=== PATIENT | female | born 1975 | race Caucasian/White ===

== ENCOUNTER 2019-10-04 13:42 | Inpatient (IN) | payer OTHER, SELFPAY ==
--- NOTE | 2019-10-04 | ECHO_ITS ---
Patient Info Name: Isa Oliveros Age: 44 years : 1975 Gender: Female Ht: 62 in Wt: 246 lbs BSA: 2.28 m2 HR: 86 bpm Heart Rhythm: Sinus Rhythm Technical Quality: Fair Exam Date: 10/04/2019 2:42 PM Exam Location: [facility] Patient Status: Inpatient Admit Date: 10/04/2019 Staff Ordering Physician: Zac Nevarez MD Engagement Liaison: Cedric Alejo RDCS Attending Provider: Santos Mckeon MD Referring Physician: Roque ARNOLD; Exam Type: CA echo doppler color flow Study Info Indications I20.0 - Unstable angina Complete two-dimensional, color flow and Doppler transthoracic echocardiogram is performed. History/Risk Factors Chest pain; CAD w/ 2 stents, DM2. Summary 1. Left atrial chamber dimension is mildly enlarged. 2. Left ventricular chamber dimension is normal. 3. Technically difficult study with limited views. 4. Left ventricular systolic function is normal with an estimated ejection fraction of 5560.0 %. 5. Normal diastolic function for age. Left Ventricle Left ventricular chamber dimension is normal. Left ventricular systolic function is normal with an estimated ejection fraction of 5560.0 %. Normal diastolic function for age. Right Ventricle Right ventricle chamber size are normal. Left Atria Left atrial chamber dimension is mildly enlarged. Right Atria Right atrial chamber dimension is normal. Aortic Valve Aortic valve is not well visualized. Pulmonic Valve Pulmonary valve is not well visualized. Mitral Valve Mitral valve is structurally and functionally normal to two-dimensional, color flow Doppler and Doppler interrogation. Tricuspid Valve The tricuspid valve is not well visualized. Left Ventricular Outflow Tract Name Value Normal LVOT 2D LVOT Diameter 1.8 cm LVOT Doppler LVOT Peak Gradient 3 mmHg LVOT Mean Gradient 2 mmHg LVOT VTI 16 cm LVOT VTI/AV VTI Ratio 0.7 LVOT Stroke Volume 41 ml LVOT CO 3.1 l/min LVOT CI 1.3 l/min/m2 Mitral Valve Name Value Normal MV Doppler MV Decel Zavala 338 cm/s2 MV PHT 57 ms MV Area (PHT) 3.8 cm2 4.0-5.0 MV Diastolic Function MV E Peak Velocity 67 cm/s MV A Peak Velocity 61 cm/s MV E/A 1.1 MV Decel Time 197 ms MV Annular TDI MV E/e' (Septal) 8.0 <=8.
--- NOTE | ~2019-10-04 | XR_ITS ---
EXAMINATION: XR chest 2V EXAM DATE: 10/04/2019 16:08 INDICATION: Mid chest pain. Unstable angina. TECHNIQUE: Frontal and lateral projections of the chest obtained and reviewed. There is no prior ranjan dy for comparison. FINDINGS: There are cholecystectomy clips. The lungs are clear. There are no pleural effusions. Th e cardiomediastinal silhouette is within normal limits. There is no pneumothorax suspected. The bon es and soft tissues are unremarkable. IMPRESSION: No acute cardiopulmonary findings. Reviewed, dictated and finalized at location A.
[2019-10-04 12:30] VITALS: PULSE 92
[2019-10-04 12:37] VITALS: BMI 44.9
--- NOTE | 2019-10-04 12:43 | ADMGEN ---
This patient, Isa Oliveros, was admitted to IMU Room 205-02. Patient/family oriented to hospital policies and general routines including ID bracelet, bed and alarms, visiting hours, pain management, procedures, bathroom and other care routines, personal items, smoking policy, room service/diet, and visiting hours. Valuables list has been completed. Information on how to activate the Rapid Response Team has been discussed. Patient/Family are encouraged to report perceived risks to care and to ask questions if they do not understand what they are told or what they should do.
--- NOTE | 2019-10-04 13:44 | ECG_ITS ---
Measurements Intervals [place] Rate: 73 P: 3 VA: 138 QRS: 25 QRSD: 95 T: 46 QT: 408 QTc: 451 Interpretive Statements SINUS RHYTHM DELAYED PRECORDIAL R/S TRANSITION BORDERLINE ECG Electronically Signed On 10-04-2019 14:19:05 CDT by Wallace Ahumada D.O.
[2019-10-04 13:58] LABS: Basophils Absolute Auto 0.1 K/mm3 (0.0-0.1); Eosinophils Absolute Auto 0.3 K/mm3 (0-0.3); Eosinophils Percent Auto 2.8 % (0-4.4); Hematocrit 51.5 % (37.0-47.0); Hemoglobin 15.9 g/dL (12.0-15.0); Immature Granulocyte Absolute 0.02 K/mm3 (0.00-0.031); Immature Granulocyte Percent A 0.2 % (0-0.5); Lymphocytes Absolute Auto 2.95 K/mm3 (0.9-3.2); Lymphocytes Percent Auto 33.2 % (18.3-44.2); Mean Corpuscular HGB Conc 30.9 g/dl (32-36); Mean Corpuscular Hemoglobin 29.5 pg (26-34); Mean Corpuscular Volume 95.5 fl (80-100); Monocytes Absolute Auto 0.6 K/mm3 (0.1-0.6); Monocytes Percent Auto 7.1 % (2.6-8.5); Neutrophils Absolute Auto 4.9 K/mm3 (1.3-6.7); Neutrophils Percent Auto 55.7 % (45.5-73.1); Platelet Count Result 332 k/mm3 (150-375); Red Blood Count 5.39 M/mm3 (4.2-5.4); Red Cell Distribution Width 13.2 % (11.5-14.5); White Blood Count 8.9 K/mm3 (4.5-10.0)
--- NOTE | 2019-10-04 14:07 | PM.IMHP ---
H&P: HPI History of Present Illness Chief complaint: unstable angina Narrative: Isa Oliveros is a 44 year old female who has a history of coronary artery disease with 2 coronary stents. She stated that 2017 she had 2 stents placed at [facility] by Dr. Raphael. She also tells me that she had a stent placed in the left leg not too long ago and she believes it was at [facility]. The patient stated that she had met with her son yesterday and has been having chest pain constantly since then. The patient stated that she took 2 baby aspirin and some nitro last night and her patent still did not go way. She continued to have pain today and called the ambulance. She does have a history of having depression anxiety and bipolar disorder. The patient is still complaining of having some discomfort at 5/10 on the pain scale. She had no nausea vomiting. No fever no chills no cough. She stated she had some numbness and tingling to left arm. The patient was given morphine in the emergency room at the outside hospital she was also given Nitrostat and lorazepam. She was also given Zofran for nausea. I do not see her chest x-ray or her CT scan results from [facility] [place] troponins and thyroid levels have been ordered there but I do not have those results. I am asking for those results from that hospital. Cardiology has been consulted. Also I do not see a 12 lead EKG on her chart so I ordered another 1. As well as another chest x-ray. It looks like her blood pressure there was 140/75 and 128/70 respirations 20-24 and pulse rate in the 70s. Pulse ox in the 90s On room air. Date of service 10/04/2019 Review of Systems Review of Systems: All systems reviewed & are unremarkable except as noted in HPI and below Constitutional: Constitutional: Reports as per HPI and Reports no additional constitutional complaints Eyes: Eyes: Reports as per HPI and Reports no additional eye complaints ENT: Reports system reviewed and no additional complaints, except as documented and Reports Normal hearing present Cardiovascular: Cardiovascular: Reports no additional cardiovascular complaints Respiratory: Respiratory: Reports no additional respiratory complaints and Reports no additional respiratory complaints Gastrointestinal: Gastrointestinal: Reports as per HPI and Reports no additional gastrointestinal complaints Musculoskeletal: Musculoskeletal: Reports no additional musculoskeletal complaints Integumentary/Breasts: Skin/Breast: Reports system reviewed and no additional complaints, except as docu and Reports as per HPI Neurologic: Reports system reviewed and no additional complaints, except as documented, Reports as per HPI and Reports Normal hearing present Psychiatric: Psychiatric: Reports no additional psychiatric complaints and Reports as per HPI Endocrine: Endocrine: Reports no additional endocrine complaints Hematologic/Lymphatic: Hematologic/Lymphatic: Reports no additional hematologic/lymphatic complaints Allergic/Immunologic: Allergic/Immunologic: Reports no additional allergic/immunologic complaints [facility] Past Medical History Medical History (Updated 10/04/19 @ 14:50 by Swathi Cornejo NP) Anxiety Asthma Bipolar disorder CAD (coronary artery disease) History of 2 cardiac stents performed at [facility] in 2017. [address] Dr[address] Raphael CAD (coronary artery disease) Chronic back pain The patient stated that she is supposed to have surgery tomorrow but isn't going to make it. Depression DM2 (diabetes mellitus, type 2) She cause a pre diabetes. GERD with apnea Patient awaiting her CPAP machine History of MRSA infection Left arm Hyperlipidemia PAD (peripheral artery disease) Surgical History Surgical History (Updated 10/04/19 @ 14:21 by Swathi Cornejo NP) H/O cardiac catheterization H/O heart artery stent X2 2017 H/O tubal ligation Hx of cholecystectomy S/P partial hysterectomy Family History Family Hist
[2019-10-04 14:08] LABS: INR 0.9; Prothrombin Time 11.5 Seconds (11.1-14.7)
[2019-10-04 14:09] LABS: Partial Thromboplastin Time 23.1 SECONDS (22.3-36.8)
--- NOTE | 2019-10-04 14:09 | PM.CNCAR ---
Assessment and Plan Assessment and plan (1) Chronic back pain: Code(s): M54.9 - Dorsalgia, unspecified; G89.29 - Other chronic pain Status: Chronic (2) GERD with apnea: Code(s): K21.9 - Gastro-esophageal reflux disease without esophagitis; R06.81 - Apnea, not elsewhere classified Status: Chronic Assessment and Plan: management per PC (3) Anxiety: Code(s): F41.9 - Anxiety disorder, unspecified Status: Chronic Assessment and Plan: Management per PC (4) Depression: Code(s): F32.9 - Major depressive disorder, single episode, unspecified Status: Chronic (5) Bipolar disorder: Code(s): F31.9 - Bipolar disorder, unspecified Status: Chronic (6) Hyperlipidemia: Code(s): E78.5 - Hyperlipidemia, unspecified Status: Chronic Assessment and Plan: will check lipids cont statins (7) Chest pain: Code(s): R07.9 - Chest pain, unspecified Status: Acute Assessment and Plan: pt had symptoms last night and at that time her BP was significantly elevated No acute EKG changes on serial EKGs will arrange for ECHO to evaluate LV function and r/o structural heart disease serial troponins ordered pt was started on Heparin drip cont ASA, Plavix and statin If CE negative pt may benefit from stress test will try to obtain old medical records (8) HTN (hypertension): Code(s): I10 - Essential (primary) hypertension Status: Acute Assessment and Plan: Initially elevated now better controlled will adjust meds Further recommendations will depend on results of diagnostic tests and pt's clinical status. Thank you for consult. Ger shabazz. History of Present Illness History of Present Illness Consult date/time: 10/04/19 14:09 Mrs Oliveros is a pleasant 44 y/o WF with PMH of HTN, CAD s/p PCI, HLD, GERD, anxiety, bipolar disorder who presented to OSH due to chest discomfort last night. Pt states that she had argument with her son at 7 PM yesterday. Subsequently had episode of sharp chest discomfort. She took NTG and ASA and they have not helped with symptoms. She had evaluation at OSH. Since she had another similar episode she was given NTG and ASA which have not helped much. She got morphine with some relief. States that her BP was found to be elevated (163//93) which usually runs low. pt states that in 2017 she was admitted to [facility] and had two stents placed at that time. Her last cath was about 6 months ago at [facility] in [place] and was negative per pt. She does follow with asl interpreter (Dr. Cárdenas) at [facility]. pt states that before current presentation she did not have any symptoms related to physical activity. She states that sometimes has some LLE pain. Had US recently which was negative per pt. She states that she used to smoke but quit in 07/10. Now feels fine, denies CP, SOB or palpitations. No LE edema. Pt was seen and examined, chart was reviewed, case was d/w pt's nurse and hospitalist's team. Reason For Visit: unstable angina Review of Systems Review of Systems: All systems reviewed & are unremarkable except as noted in HPI and below Constitutional: Constitutional: Reports as per HPI Eyes: Eyes: Reports as per HPI ENT: Reports system reviewed and no additional complaints, except as documented and Reports as per HPI Cardiovascular: Cardiovascular: Reports as per HPI Respiratory: Respiratory: Reports as per HPI Gastrointestinal: Gastrointestinal: Reports as per HPI Genitourinary: Genitourinary: Reports as per HPI Musculoskeletal: Musculoskeletal: Reports as per HPI [facility] Past Medical History Medical History (Updated 10/04/19 @ 14:33 by Zac Nevarez MD) Anxiety Asthma Bipolar disorder CAD (coronary artery disease) History of 2 cardiac stents performed at [facility] in 2017. [address] Raphael CAD (coronary artery disease) Chronic back pain The patien
[2019-10-04 15:57] LABS: Magnesium 1.9 mg/dL (1.6-2.3)
[2019-10-04 16:00] VITALS: PULSE 83
[2019-10-04 16:10] LABS: Troponin I < 0.012 ng/mL (0.000-0.034)
[2019-10-04 16:34] VITALS: BP 125/86; PULSE 84; RESP 16; TEMP 36.3; O2SAT 99
[2019-10-04] MEDS: HEPARIN SODIUM 5,000 UNITS/ML VIAL 4000 UNITS IV PUSH (16:39)
[2019-10-04] MEDS: MORPHINE SULFATE 2 MG/ML INJ IV PUSH ×2 (16:40→21:38)
[2019-10-04] MEDS: HEPARIN SOD/D5W 100 UNITS/ML 25,000 UNITS/250 ML BAG 9 UNITS IV CONT (16:41)
[2019-10-04] MEDS: DEXTROSE 5%/0.45% SOD CHL 1,000 ML 100 ML IV CONT (16:42)
[2019-10-04] MEDS: CYCLOBENZAPRINE HCL 10 MG TABLET PO (16:42)
[2019-10-04 16:45] LABS: Hemoglobin A1C 5.5 % (<5.7)
[2019-10-04 17:02] LABS: Add Urine Microscopic? NO; Appearance Urine Clear (Clear); Bilirubin Urine Negative (Negative); Blood Urine Negative (Negative); Color Urine Yellow (Yellow); Glucose Urine UA Negative (Negative); Ketones Urine Negative (Negative); Leukocyte Esterase Ur Negative LEU/UL (NEGATIVE); Nitrate Urine Negative (Negative); Protein Urine Negative (Negative); Urobilinogen Urine Negative mg/dL (<2.0)
[2019-10-04 17:04] LABS: Specific Grav Ur 1.035 (1.001-1.035)
[2019-10-04 18:30] LABS: Glucose Point of Care 78 (65-105)
[2019-10-04 19:20] LABS: Troponin I < 0.012 ng/mL (0.000-0.034)
[2019-10-04 20:00] VITALS: BP 100/61; PULSE 70; PULSE 71; PULSE 76; RESP 18; RESP 20; TEMP 36.7; O2SAT 96; O2SAT 98
[2019-10-04 20:16] VITALS: PULSE 86
[2019-10-04] MEDS: ATORVASTATIN 40 MG TABLET 80 MG PO (20:16)
[2019-10-04] MEDS: METOPROLOL SUCCINATE EXT REL 50 MG TABCR PO (20:16)
[2019-10-04] MEDS: CLOPIDOGREL BISULFATE 75 MG TABLET PO (20:17)
[2019-10-04 21:23] LABS: Glucose Point of Care 98 (65-105)
[2019-10-04] MEDS: ZOLPIDEM TARTRATE 5 MG TABLET 10 MG PO (21:38)
[2019-10-04] MEDS: ONDANSETRON INJ 4 MG/2 ML VIAL IV PUSH (21:44)
[2019-10-04 22:06] LABS: Troponin I < 0.012 ng/mL (0.000-0.034)
[2019-10-04 22:16] VITALS: PULSE 76; RESP 20; O2SAT 96
[2019-10-05] VITALS (27 sets, daily range): BP systolic 75–124; BP diastolic 40–73; PULSE 51–91; RESP 11–23; TEMP 36.1–37.1; O2SAT 92–100
[2019-10-05] MEDS: HEPARIN SODIUM 5,000 UNITS/ML VIAL 4000 UNITS IV PUSH (00:02)
[2019-10-05] MEDS: DEXTROSE 5%/0.45% SOD CHL 1,000 ML 100 ML IV CONT (03:04)
[2019-10-05] MEDS: CYCLOBENZAPRINE HCL 10 MG TABLET PO ×2 (05:33→22:00)
[2019-10-05] MEDS: MORPHINE SULFATE 2 MG/ML INJ IV PUSH ×2 (05:34→21:57)
[2019-10-05 06:16] LABS: Basophils Absolute Auto 0.1 K/mm3 (0.0-0.1); Basophils Percent Auto 0.7 % (0.2-1.2); Eosinophils Absolute Auto 0.2 K/mm3 (0-0.3); Eosinophils Percent Auto 2.9 % (0-4.4); Hemoglobin 13.7 g/dL (12.0-15.0); Immature Granulocyte Absolute 0.03 K/mm3 (0.00-0.031); Immature Granulocyte Percent A 0.4 % (0-0.5); Lymphocytes Absolute Auto 1.84 K/mm3 (0.9-3.2); Lymphocytes Percent Auto 25.7 % (18.3-44.2); Mean Corpuscular HGB Conc 32.6 g/dl (32-36); Mean Corpuscular Hemoglobin 29.4 pg (26-34); Mean Corpuscular Volume 90.1 fl (80-100); Monocytes Absolute Auto 0.5 K/mm3 (0.1-0.6); Monocytes Percent Auto 7.3 % (2.6-8.5); Neutrophils Absolute Auto 4.5 K/mm3 (1.3-6.7); Platelet Count Result 293 k/mm3 (150-375); Red Blood Count 4.66 M/mm3 (4.2-5.4); White Blood Count 7.2 K/mm3 (4.5-10.0)
[2019-10-05 06:24] LABS: Blood Urea Nitrogen 14 mg/dL (7-17); Calcium 8.3 mg/dL (8.4-10.2); Carbon Dioxide 27 mmol/L (22-30); Chloride 104 mmol/L (98-107); Cholesterol 252 mg/dL (0-200); Estimated CRCL calculation 73 ml/min; Estimated Glomerular Filt Rate 60; Glucose 95 mg/dL (65-105); HDL Direct 56 mg/dL; Potassium 4.4 mmol/L (3.4-5.0); Sodium 134 mmol/L (137-145); Triglycerides 92 mg/dL (<150)
[2019-10-05 06:26] LABS: Partial Thromboplastin Time 160.3 SECONDS (22.3-36.8)
[2019-10-05 06:35] LABS: LDL Cholesterol Direct 175 mg/dL
[2019-10-05] MEDS: HEPARIN SOD/D5W 100 UNITS/ML 25,000 UNITS/250 ML BAG 10 UNITS IV CONT (07:34)
[2019-10-05] MEDS: ASPIRIN 81 MG ENTERIC TABLET PO (08:20)
[2019-10-05] MEDS: PANTOPRAZOLE 40 MG TABLET PO (08:20)
[2019-10-05] MEDS: FAMOTIDINE 20 MG TABLET PO (08:20)
[2019-10-05] MEDS: ONDANSETRON INJ 4 MG/2 ML VIAL IV PUSH ×2 (08:21→21:57)
[2019-10-05] MEDS: ARIPIPRAZOLE 10 MG TABLET PO (08:21)
[2019-10-05 08:50] LABS: Glucose Point of Care 96 (65-105)
[2019-10-05] MEDS: ISOSORBIDE DINITRATE 20 MG TABLET PO (09:44)
[2019-10-05] MEDS: SODIUM CHLORIDE 0.9% IV 500 ML IV CONT (12:45)
--- NOTE | 2019-10-05 13:40 | PC.NURSE ---
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
[2019-10-05 13:47] LABS: Partial Thromboplastin Time 64.2 SECONDS (22.3-36.8)
--- NOTE | 2019-10-05 13:54 | WPDMODSED ---
Moderate Sedation Note-Pt Data Patient Data Allergies Allergy/AdvReac Type Severity Reaction Status Date / Time codeine AdvReac Intermediate RASH, Verified 10/04/19 12:59 NAUSEA morphine AdvReac Intermediate NAUSEA/ ITCHY Verified 03/23/19 08:40 THROUGHOUT BODY ranolazine AdvReac Mild RASH Verified 03/23/19 08:40 tramadol AdvReac Mild RASH Verified 03/23/19 08:40 Home Medications Medication Instructions Recorded Confirmed Type amlodipine 10 mg PO DAILY 10/04/19 10/04/19 History aripiprazole [Abilify] 10 mg PO DAILY 10/04/19 10/04/19 History aspirin [Enteric Coated Aspirin] 81 mg PO DAILY 10/04/19 10/04/19 History atorvastatin 80 mg PO HS 10/04/19 10/04/19 History clopidogrel 75 mg PO HS 10/04/19 10/04/19 History cyclobenzaprine 10 mg PO TID 10/04/19 10/04/19 History dexmethylphenidate [Focalin] 10 mg PO Q12H 10/04/19 10/04/19 History famotidine [Pepcid] 20 mg PO DAILY 10/04/19 10/04/19 History hydroxyzine pamoate [Vistaril] 25 mg PO DAILY 10/04/19 10/04/19 History isosorbide dinitrate 20 mg PO DAILY 10/04/19 10/04/19 History lisdexamfetamine [Vyvanse] 30 mg PO DAILY 10/04/19 10/04/19 History lisinopril 10 mg PO DAILY 10/04/19 10/04/19 History metoprolol succinate 50 mg PO HS 10/04/19 10/04/19 History pantoprazole 40 mg PO DAILY 10/04/19 10/04/19 History topiramate [Topamax] 50 mg PO Q12H 10/04/19 10/04/19 History vortioxetine [Trintellix] 10 mg PO DAILY 10/04/19 10/04/19 History zolpidem 10 mg PO HS 10/04/19 10/04/19 History Current Medications: Active Medications Acetaminophen (Tylenol Tablet) 650 mg PO Q4H PRN PRN Reason: Mild Pain (1-3) or Fever Amlodipine Besylate (Norvasc) 10 mg PO DAILY [facility] Last Admin: 10/05/19 11:06 Dose: Not Given Documented by: Aripiprazole (Abilify) 10 mg PO DAILY [facility] Last Admin: 10/05/19 08:21 Dose: 10 mg Documented by: Aspirin (Aspirin Ec) 81 mg PO DAILY [facility] Last Admin: 10/05/19 08:20 Dose: 81 mg Documented by: Atorvastatin Calcium (Lipitor) [address] [facility] Last Admin: 10/04/19 20:16 Dose: 80 mg Documented by: Clopidogrel Bisulfate (Plavix) [address] [facility] Last Admin: 10/04/19 20:17 Dose: 75 mg Documented by: Cyclobenzaprine HCl (Flexeril) 10 mg PO TID [facility] Last Admin: 10/05/19 13:39 Dose: Not Given Documented by: Dextrose (Dextrose 50% Syringe) 12.5 gm IV PUSH PRN PRN; Protocol PRN Reason: Hypoglycemia Famotidine (Pepcid) 20 mg PO DAILY [facility] Last Admin: 10/05/19 08:20 Dose: 20 mg Documented by: Glucagon (Glucagon For Inj) 1 mg IM PRN PRN; Protocol PRN Reason: Hypoglycemia Glucose (Glutose 15) 15 gm PO PRN PRN; Protocol PRN Reason: Hypoglycemia Heparin Sodium (Porcine) (Heparin Sodium) 4,000 units IV PUSH PRN PRN PRN Reason: aPTT less than 55 seconds Last Admin: 10/05/19 00:02 Dose: 4,000 units Documented by: Heparin Sodium (Porcine) (Heparin Sodium) 3,000 units IV PUSH PRN PRN PRN Reason: aPTT 55 - 70 seconds Heparin Sodium/Dextrose (Heparin Sodium/D5w 100 Units/Ml) 25,000 units in 250 mls @ 0 mls/hr IV CONT .Q0M [facility]; Protocol Last Titration: 10/05/19 13:39 Dose: 0 units/hr, 0 mls/hr Documented by: Dextrose/Sodium Chloride (Dextrose 5% Sodium Chloride 0.45%) 1,000 mls @ 100 mls/hr IV CONT .Q10H [facility] Last Infusion: 10/05/19 13:38 Dose: Infused Documented by: Dextrose (Dextrose 5% 1,000 Ml) 1,000 mls @ 100 mls/hr IVPB PRN PRN; Protocol PRN Reason: Hypoglycemia Sodium Chloride (Normal Saline Iv) 500 mls @ 100 mls/hr IV CONT .Q5H [facility] Insulin Aspart (Novolog) 2 - 5 units SUB-Q TIDWM [facility]; Protocol Last Admin: 10/05/19 13:39 Dose: Not Given Documented by: Isosorbide Dinitrate (Isordil) 20 mg PO DAILY [facility] Last Admin: 10/05/19 09:44 Dose: 20 mg Documented by: Lisinopril (Prinivil) 10 mg PO DAILY [facility] Last Admin: 10/05/19 11:06 Dose: Not Given Documented by: Metoprolol Succinate (Toprol Xl) 50 mg PO HS [facility] Last Admin: 10/04/19 20:16 Dose: 50 mg Documented by: Morphine Sulfate (Morphine Sulfate Inj) 2 mg I
--- NOTE | 2019-10-05 14:26 | PM.PNCARD ---
Progress Note: A&P Assessment and Plan (1) Chronic back pain: Code(s): M54.9 - Dorsalgia, unspecified; G89.29 - Other chronic pain Status: Chronic (2) GERD with apnea: Code(s): K21.9 - Gastro-esophageal reflux disease without esophagitis; R06.81 - Apnea, not elsewhere classified Status: Chronic Assessment and Plan: management per PC (3) Anxiety: Code(s): F41.9 - Anxiety disorder, unspecified Status: Chronic Assessment and Plan: Management per PC (4) Depression: Code(s): F32.9 - Major depressive disorder, single episode, unspecified Status: Chronic (5) Bipolar disorder: Code(s): F31.9 - Bipolar disorder, unspecified Status: Chronic (6) Hyperlipidemia: Code(s): E78.5 - Hyperlipidemia, unspecified Status: Chronic Assessment and Plan: will check lipids cont statins (7) Chest pain: Code(s): R07.9 - Chest pain, unspecified Status: Acute Assessment and Plan: Cardiac catheterization, showed patent LAD stent minimal disease in the left circumflex, and distal RCA disease but at that level the vessel is smaller vessel, suggesting medical treatment and risk factors modification (8) HTN (hypertension): Code(s): I10 - Essential (primary) hypertension Status: Acute Assessment and Plan: Initially elevated now better controlled Subjective Date/time seen: 10/05/19 14:26 She feels better today, still with chest pain and mild shortness of breath. Cardiac catheterization done today showed patent stent in the LAD, she has distal RCA disease 60-75% narrowing at the PDA, OTHERWISE NO SIGNIFICANT DISEASE NOTED Exam Const: General: alert and awake; No acute distress HENMT: Head: normal to inspection and atraumatic Ears: hearing grossly normal bilaterally Face and sinus: normal facial exam Eyes: General: appearance normal, both eyes and all related structures Pupils: Equal, round and reactive pupils present EOM: EOMs intact bilaterally Neck: Neck: normal visual inspection and no JVD Chest: Chest palpation & inspection: normal inspection of the chest Resp: Effort & Inspection: normal respiratory effort and no respiratory distress Auscultation: clear to auscultation bilaterally Cardio: Jugular venous distension: no JVD Rate: regular rate Heart sounds: S1 normal heart sound present, S2 normal heart sound present and no murmurs GI: Inspection: normal to inspection Auscultation: normal bowel sounds Skin: General skin exam: normal color Neuro: Cranial nerves: Yes Equal, round and reactive pupils present Extrem: General: normal to inspection and no clubbing, cyanosis or edema Objective Data Vital Signs Vital Signs: Vital Signs - 24 hr 10/04/19 16:00 10/04/19 16:34 10/04/19 20:00 Temperature 36.3 C L 36.7 C Pulse Rate 83 84 76 Respiratory Rate 16 20 Blood Pressure 125/86 100/61 Pulse Oximetry 99 96 10/04/19 20:16 10/04/19 22:16 10/05/19 00:00 Temperature 37.1 C Pulse Rate 86 76 76 Respiratory Rate 20 18 Blood Pressure 116/65 Pulse Oximetry 96 98 10/05/19 02:00 10/05/19 04:00 10/05/19 05:58 Temperature 36.9 C Pulse Rate 72 71 68 Respiratory Rate 18 Blood Pressure 104/65 Pulse Oximetry 97 10/05/19 08:00 10/05/19 09:28 10/05/19 10:00 Temperature 36.3 C L Pulse Rate 59 L 69 67 Respiratory Rate 16 Blood Pressure 101/63 105/65 Pulse Oximetry 99 99 10/05/19 11:08 10/05/19 12:00 Temperature 36.2 C L Pulse Rate 63 Respiratory Rate 16 Blood Pressure 99/40 L 82/49 L Pulse Oximetry 93 Intake/Output Intake/Output: Intake & Output 10/02/19 10/03/19 10/04/19 10/05/19 23:59 23:59 23:59 23:59 Intake Total 240 2817.4 Output Total 300 750 Balance -60 2067.4 Meds/Results Medications: Active Medications Generic Name Dose Route Start Last Admin Trade Name Freq PRN Reason Stop Dose Admin Acetaminophen 650 mg 10/05/19 03
--- NOTE | 2019-10-05 14:29 | P.PCNCC_ITS ---
Cardiac Cath Procedure Note Date of procedure:: 10/05/19 Performing physician:: Santos Mckeon MD Procedure: 1. Left heart catheterization, selective coronary angiogram. 2. Right common femoral artery angiogram 3. Conscious sedation. Pool Table Mechanic: Dr. Santos Mckeon Complications: None. Sedation: Conscious sedation, local anesthesia, using 1 mg of Versed said, 25 mcg of fentanyl, and using 1% lidocaine for local anesthesia. Technique: After informed consent was obtained from patient, was brought to the blood bank laboratory professional, put in the blood bank laboratory professional table, prepped and draped in usual sterile fashion. Five Ug[place]an sheath was inserted into the right common femoral artery, through the sheath 5 Ugandan JL4 catheter inserted, advanced to the left coronary artery, left coronary artery angiogram was obtained. The catheter was exchanged over guidewire into a 5 [place] JR4 catheter, advanced to the right coronary artery, right coronary artery angiogram was obtained. The catheter was inserted to the left ventricular left ventricular pressure was measured. The catheter then was pulled, the sheath was pulled applying manual pressure for arterial hemostasis. Patient tolerated the procedure no complication, taken from the blood bank laboratory professional to his room in stable condition stable vital signs. Hemodynamics: aortic pressure 92/50 . LV pressure 92/04 with LVEDP of 18 mmHg Angiographic findings: Left main: Medium size artery no significant disease or stenosis. Lad medium size artery showed patent LAD stent with no significant disease or stenosis Left circumflex artery, medium size artery, no significant disease or stenosis. RCA: Dominant vessel, showed distal RCA disease 60 75% narrowing but at that level the vessel becomes very small Summary: Mild coronary artery disease, normal left ventricular systolic function. Recommendation: Maximum medical treatment. Risk factor modification.
[2019-10-05 14:39] LABS: D Dimer 0.28 ug/mL (<0.48)
--- NOTE | 2019-10-05 14:58 | PM.IMPN ---
Progress Note: A&P Assessment and Plan (1) Unstable angina: Code(s): I20.0 - Unstable angina Status: Acute Assessment and Plan: She has a history of CAD s/p 2x PIC at [facility] by Dr. Raphael in 2018. The patient was transferred from [facility] for unstable angina. She was continued on aspirin and Plavix. She was started on heparin drip. Dr. Mckeon evaluated the patient and is planning for a cardiac cath later this afternoon. Troponins negative x3. She reports chest pain rated 4/10 at this time. Monitor for any signs and symptoms of bleeding. Will continue with her morphine p.r.n. patient has a lot of anxiety issues as well. Cardiology's input is greatly appreciated. (2) HTN (hypertension): Code(s): I10 - Essential (primary) hypertension Status: Acute Assessment and Plan: Continue with lisinopril, metoprolol and Norvasc. (3) Chronic back pain: Code(s): M54.9 - Dorsalgia, unspecified; G89.29 - Other chronic pain Status: Chronic Assessment and Plan: Patient stated that she was scheduled for surgery tomorrow which will not happen at this time due to her circumstances as of today. (4) GERD with apnea: Code(s): K21.9 - Gastro-esophageal reflux disease without esophagitis; R06.81 - Apnea, not elsewhere classified Status: Chronic Assessment and Plan: Titrate a CPAP machine. (5) DM2 (diabetes mellitus, type 2): Code(s): E11.9 - Type 2 diabetes mellitus without complications Status: Chronic Assessment and Plan: Patient stated she is prediabetic. Hemoglobin A1c was 5.5%. Normal. (6) Hyperlipidemia: Code(s): E78.5 - Hyperlipidemia, unspecified Status: Chronic Assessment and Plan: Continue with atorvastatin. (7) Depression: Code(s): F32.9 - Major depressive disorder, single episode, unspecified Status: Chronic Assessment and Plan: Continue with Abilify (8) Bipolar disorder: Code(s): F31.9 - Bipolar disorder, unspecified Status: Chronic Assessment and Plan: She is on Vyvanse (9) Anxiety: Code(s): F41.9 - Anxiety disorder, unspecified Status: Chronic Assessment and Plan: Continue on home meds. (10) PAD (peripheral artery disease): Code(s): I73.9 - Peripheral vascular disease, unspecified Status: Acute Assessment and Plan: Patient states she had an ultrasound of her lower extremities. She denies any stents placed in her legs. She is on aspirin and Plavix. Time Spent With Patient Time with patient: 25 - 35 minutes Subjective Date/time seen: 10/05/19 10:58 Interval history: Date of Service 10/05/2019: She reports feeling better today, but still having intermittent left sided chest pain which is described as a tight, pulling and sharp pain with intermittent radiation to her back and left arm numbness. Pain rated 4/10. She denies any nausea, diaphoresis, shortness of breath associated. Denies any worsening pain with palpation, eating certain foods or any improvement with Nitro or aspirin. She has been eating and drinking without any issues. She reports some slight intermittent leg swelling lately, but none currently. She denies fever, chills, vomiting, abdominal pain, constipation, diarrhea, calf pain, or any other symptoms at this time. Review of Systems Review of Systems: All systems reviewed & are unremarkable except as noted in HPI and below
[2019-10-05 15:10] LABS: Glucose Point of Care 99 (65-105)
--- NOTE | 2019-10-05 16:40 | PC.NURSE ---
Pt returned from cardiac cath lab radiology technologist
[2019-10-05 17:13] LABS: Glucose Point of Care 80 (65-105)
[2019-10-05] MEDS: DEXTROSE 5%/0.9% SOD CHL 1,000 ML 100 ML IV CONT (17:20)
[2019-10-05] MEDS: SODIUM CHLORIDE 0.9% IV 1,000 ML 125 ML IV CONT (19:10)
[2019-10-05 20:35] LABS: Glucose Point of Care 110 (65-105)
[2019-10-05] MEDS: METOPROLOL SUCCINATE EXT REL 50 MG TABCR PO (21:59)
[2019-10-05] MEDS: ATORVASTATIN 40 MG TABLET 80 MG PO (22:00)
[2019-10-05] MEDS: CLOPIDOGREL BISULFATE 75 MG TABLET PO (22:01)
[2019-10-05] MEDS: ZOLPIDEM TARTRATE 5 MG TABLET 10 MG PO (23:57)
[2019-10-06] VITALS (9 sets, daily range): BP systolic 101–113; BP diastolic 61–73; PULSE 66–78; RESP 14–23; TEMP 36.2–37.2; O2SAT 95–98
[2019-10-06 08:27] LABS: Glucose Point of Care 83 (65-105)
[2019-10-06] MEDS: PANTOPRAZOLE 40 MG TABLET PO (08:58)
[2019-10-06] MEDS: ARIPIPRAZOLE 10 MG TABLET PO (08:58)
[2019-10-06] MEDS: FAMOTIDINE 20 MG TABLET PO (08:58)
[2019-10-06] MEDS: ASPIRIN 81 MG ENTERIC TABLET PO (08:58)
[2019-10-06] MEDS: CYCLOBENZAPRINE HCL 10 MG TABLET PO (08:58)
[2019-10-06] MEDS: AMLODIPINE BESYLATE 5 MG TABLET 10 MG PO (08:58)
[2019-10-06] MEDS: ISOSORBIDE DINITRATE 20 MG TABLET PO (08:58)
[2019-10-06] MEDS: lisinopriL 10 MG TABLET PO (08:59)
--- NOTE | 2019-10-06 09:53 | PM.PNCARD ---
Progress Note: A&P Assessment and Plan (1) HTN (hypertension): Code(s): I10 - Essential (primary) hypertension Status: Acute Assessment and Plan: Initially BP elevated now well controlled cont meds (2) Chest pain: Code(s): R07.9 - Chest pain, unspecified Status: Acute Assessment and Plan: resolved cath showed patent stents and small vessel disease cont medications (3) Hyperlipidemia: Code(s): E78.5 - Hyperlipidemia, unspecified Status: Chronic Assessment and Plan: cont statin (4) Anxiety: Code(s): F41.9 - Anxiety disorder, unspecified Status: Chronic (5) Depression: Code(s): F32.9 - Major depressive disorder, single episode, unspecified Status: Chronic (6) Bipolar disorder: Code(s): F31.9 - Bipolar disorder, unspecified Status: Chronic Assessment and Plan: Pt appears stable from cardiac standpoint. Fu with her primary human performance technologist in one week. Subjective Date/time seen: 10/06/19 09:53 Pt feels fine today. No CP, SOB, palpitations. Pt was seen and examined, chart was reviewed, d/w hospitalist's team and pt's nurse. Review of Systems Review of Systems: All systems reviewed & are unremarkable except as noted in HPI and below Constitutional: Constitutional: Reports as per HPI Eyes: Eyes: Reports as per HPI ENT: Reports system reviewed and no additional complaints, except as documented and Reports as per HPI Cardiovascular: Cardiovascular: Reports as per HPI Respiratory: Respiratory: Reports as per HPI Gastrointestinal: Gastrointestinal: Reports as per HPI Genitourinary: Genitourinary: Reports as per HPI Musculoskeletal: Musculoskeletal: Reports as per HPI Exam Const: General: no acute distress Nutritional Appearance: well nourished Orientation/consciousness: patient oriented x3 HENMT: Head: normal to inspection and atraumatic Ears: hearing grossly normal bilaterally Face and sinus: normal facial exam Eyes: General: appearance normal, both eyes and all related structures Pupils: Equal, round and reactive pupils present EOM: EOMs intact bilaterally Neck: Neck: supple Chest: Chest palpation & inspection: normal inspection of the chest Resp: Effort & Inspection: normal respiratory effort and no respiratory distress Auscultation: clear to auscultation bilaterally Cardio: Jugular venous distension: no JVD Rate: regular rate Heart sounds: S1 normal heart sound present, S2 normal heart sound present and no murmurs Peripheral pulses: Peripheral pulses 2+ throughout GI: GI Palp: No abdominal tenderness Auscultation: normal bowel sounds Skin: General skin exam: normal color Neuro: General: patient oriented x3 Cranial nerves: Yes Equal, round and reactive pupils present Extrem: General: normal to inspection and no clubbing, cyanosis or edema Objective Data Vital Signs Vital Signs: Vital Signs - 24 hr 10/05/19 10:00 10/05/19 11:08 10/05/19 12:00 Temperature 36.2 C L Pulse Rate 67 63 Pulse Rate [Right Pedal (Dorsalis Pedis) Palpation] Respiratory Rate 16 Blood Pressure 99/40 L 82/49 L Pulse Oximetry 93 10/05/19 14:30 10/05/19 14:45 10/05/19 15:00 Temperature 36.6 C Pulse Rate 63 64 51 L Pulse Rate [Right Pedal (Dorsalis Pedis) Palpation] 63 64 51 L Respiratory Rate 11 L 14 15 Blood Pressure 93/56 L 90/66 L 87/50 L Pulse Oximetry 98 93 93 10/05/19 15:15 10/05/19 15:45 10/05/19 16:00 Temperature Pulse Rate 62 73 61 Pulse Rate [Right Pedal (Dorsalis Pedis) Palpation] 62 73 61 Respiratory Rate 12 22 H 14 Blood Pressure 75/54 L 76/59 L 90/59 L Pulse Oximetry 93 92 94 10/05/19 16:15 10/05/19 16:30 10/05/19 16:40 Temperature Pulse Rate 71 67 71 Pulse Rate [Right Pedal (Dorsalis Pedis) Palpation] 71 67 Respiratory Rate 14 15 Blood Pressure 89/63 L 92/60 L Pulse Oximetry 95 96 10/05/19 17:00 10/05/19 17:30 10/05/19 18:30 Temperature 36.
--- NOTE | 2019-10-06 10:22 | PM.DS ---
DS: Diagnosis Admitting Diagnosis Admitting Diagnosis: Dorsalgia, unspecified Discharge Diagnosis (1) Unstable angina: Code(s): I20.0 - Unstable angina Status: Acute Assessment and Plan: She has a history of CAD s/p 2x PIC at [facility] by Dr. Raphael in 2018. The patient was transferred from [facility] for unstable angina. She was continued on aspirin and Plavix. She was started on heparin drip. Dr. Mckeon evaluated the patient and preformed a cardiac cath on 10/05/2019 showing mild CAD with RCA disease 60-75% narrowed the vessel is very small. No stent was placed. Troponins negative x3. She reports chest pain rated 4/10 at this time. The patient was admitted overnight after having her Catheterization secondary to hypotension during procedure. Dr. Nevarez Cardiology evaluated the patient again this morning and feels that she is stable for discharge at this time. Her repeat BP after medications this morning is 101/62 and she is not feeling lightheaded or dizzy. She will need to follow up with her Farm Products Shipper in 1 week. The patient understands and agrees with the plan. All questions answered. (2) HTN (hypertension): Code(s): I10 - Essential (primary) hypertension Status: Acute Assessment and Plan: Continue with lisinopril, metoprolol and Norvasc. BP stable today after cardiac cath. (3) Chronic back pain: Code(s): M54.9 - Dorsalgia, unspecified; G89.29 - Other chronic pain Status: Chronic Assessment and Plan: Patient stated that she was scheduled for surgery which will not happen and will need to be rescheduled. (4) GERD with apnea: Code(s): K21.9 - Gastro-esophageal reflux disease without esophagitis; R06.81 - Apnea, not elsewhere classified Status: Chronic Assessment and Plan: Titrate a CPAP machine. (5) DM2 (diabetes mellitus, type 2): Code(s): E11.9 - Type 2 diabetes mellitus without complications Status: Chronic Assessment and Plan: Patient stated she is prediabetic. Hemoglobin A1c was 5.5%. Normal. (6) Hyperlipidemia: Code(s): E78.5 - Hyperlipidemia, unspecified Status: Chronic Assessment and Plan: Continue with atorvastatin. (7) Depression: Code(s): F32.9 - Major depressive disorder, single episode, unspecified Status: Chronic Assessment and Plan: Continue with Abilify (8) Bipolar disorder: Code(s): F31.9 - Bipolar disorder, unspecified Status: Chronic Assessment and Plan: She is on Vyvanse (9) Anxiety: Code(s): F41.9 - Anxiety disorder, unspecified Status: Chronic Assessment and Plan: Continue on home meds. (10) PAD (peripheral artery disease): Code(s): I73.9 - Peripheral vascular disease, unspecified Status: Acute Assessment and Plan: Patient states she had an ultrasound of her lower extremities. She denies any stents placed in her legs. She is on aspirin and Plavix. DS: Summary Hospital Course Reason for hospitalization: The patient is a 44 year old woman with a history of CAD s/p 2 2017, who was transferred from [facility] by her Farm Products Shipper to Dr. Mckeon Farm Products Shipper for further evaluation for unstable angina. Initial vitals showed temp 97.4F, BP 125/86, HR 84, RR 16, O2 99% on RA. Initial vitals showed, normal CBC, normal coag panel, troponin negative x3. HgbA1c was 5.5%. UA normal. CXR showed no
== END 2019-10-06 12:05 | disposition home or self-care (01) | DRG 191 ==
LOC: ANHIMU 10-06 10:42 → ANH2MED 10-09 12:49 → ANHIMU 10-09 12:49
PROVIDERS: Nurse Practitioner; Physician Assistant; Specialist; Admitting Provider Family Medicine; Visit Provider Family Medicine
PROC: 4A023N7 Measurement of Cardiac Sampling and Pressure, Left Heart, Percutaneous Approach (ICD-10-PCS; CPT 93452; principal; 2019-10-05 13:30)
DX: I25.110 Atherosclerotic heart disease of native coronary artery with unstable angina pectoris (principal); I10 Essential (primary) hypertension; M54.9 Dorsalgia, unspecified; G89.29 Other chronic pain; K21.9 Gastro-esophageal reflux disease without esophagitis; R06.81 Apnea, not elsewhere classified; E11.51 Type 2 diabetes mellitus with diabetic peripheral angiopathy without gangrene; I73.9 Peripheral vascular disease, unspecified; E78.5 Hyperlipidemia, unspecified; F31.9 Bipolar disorder, unspecified; F41.8 Other specified anxiety disorders; J45.909 Unspecified asthma, uncomplicated; Z95.5 Presence of coronary angioplasty implant and graft; Z90.49 Acquired absence of other specified parts of digestive tract; Z87.891 Personal history of nicotine dependence; Z79.02 Long term (current) use of antithrombotics/antiplatelets; Z79.82 Long term (current) use of aspirin
CPT/HCPCS: 36415; 71046; 80048; 80061; 81003; 83036; 83735; 84484; 85025; 85380; 85610; 85730; 93005; 93306; 93458; A9270; C1887; C1894; J1644; J2250; J2270; J2405; J3010; J7030; J7040; J7042